=== PATIENT | male | born 1960 | race Two or more races ===

== ENCOUNTER 2016-10-15 22:16 | Emergency (ER) | payer OTHER ==
[~2016-10-15] VITALS: Ht 177.8 cm; Wt 108.9 kg
[2016-10-15 22:35] VITALS: BP 149/96
== END 2016-10-16 00:45 | disposition left against medical advice (07) ==
LOC: ER 22:21
DX: M79.604 Pain in right leg (principal); Z53.21 Procedure and treatment not carried out due to patient leaving prior to being seen by health care provider